=== PATIENT | female | born 1990 | race Caucasian/White ===

== ENCOUNTER 2020-06-11 12:28 | Emergency (ER) | payer OTHER, SELFPAY ==
[2020-06-11 12:38] VITALS: BP 126/92; PULSE 110; RESP 20; TEMP 39.4; O2SAT 99
[2020-06-11] MEDS: KETOROLAC 30 MG/ML VIAL (*BKC) IV PUSH (13:26)
[2020-06-11 13:29] VITALS: BP 144/74; PULSE 115; RESP 23; TEMP 38.8; O2SAT 99
[2020-06-11] MEDS: DEXAMETHASONE SOD PHOS INJ 4 MG/ML VIAL 10 MG IV PUSH (14:13)
[2020-06-11 14:17] VITALS: BP 134/71; PULSE 112; RESP 12; TEMP 37.7; O2SAT 96
--- NOTE | 2020-06-11 14:23 | ED.FEVER ---
HPI - Fever General Chief Complaint: Fever Stated Complaint: sore throat Time Seen by Provider: 06/11/20 12:42 Source: patient Mode of arrival: EMS Limitations: no limitations History of Present Illness HPI Narrative: Patient is a 29-year-old female who presents to emergency department for evaluation of sore throat fever chills body aches nonproductive cough for the last 2 days denies sick contacts denies vomiting diarrhea dyspnea chest pain has not taken anything for her symptoms presents per EMS appears uncomfortable but in no distress patient felt appropriate for Covid testing. Related Data Home Medications Medication Instructions Recorded Confirmed baclofen mg 06/11/20 ibuprofen 600 mg PO TID 06/11/20 Allergies Allergy/AdvReac Type Severity Reaction Status Date / Time bupropion AdvReac Intermediate DIZZINESS Verified 06/11/20 12:43 AND PAULA Review of Systems Review of Systems: All systems reviewed & are unremarkable except as noted in HPI and below PMFSH Past Medical History Medical History (Updated 06/11/20 @ 14:27 by Andreas Burleson PA-C) Obese Social History Social History Smoking status: Light tobacco smoker Alcohol intake: never Substance use type: marijuana Gender identity (if verbalized by the patient): Female Exam Narrative: Exam Narrative: GENERAL: Ill-appearing, well-nourished, and in no acute distress. HEAD: Normocephalic, atraumatic. EYES: PERRLA and EOMI. ENT: Nares clear, no rhinorrhea or epistaxis. Mucous membranes moist. Oropharynx with tonsillar hypertrophy exudate uvula midline no peritonsillar hypertrophy NECK: Supple. Anterior adenopathy noted CHEST: Clear to auscultation. No respiratory distress. No wheezes rales or rhonchi HEART: Regular rate and rhythm. No murmur heard. EXTREMITIES: Normal range of motion. No edema. SKIN: Warm, dry, no rash. NEURO: No focal deficits. Alert and oriented x3. PSYCH: Normal mood and affect. Course Course Emergency Course: Patient with strep pharyngitis will also be tested for Covid will be discharged home with medications was hydrated given medications in the emergency department with resolution of her fever resting comfortably no distress feeling much better with interventions felt appropriate for outpatient reevaluation agreeing to follow-up as directed. Provided with ENT referral Vital Signs Vital signs: Vital Signs Temperature 102.9 F H 06/11/20 12:38 Pulse Rate 110 H 06/11/20 12:38 Respiratory Rate 20 06/11/20 12:38 Blood Pressure 126/92 H 06/11/20 12:38 Pulse Oximetry 99 06/11/20 12:38 Temperature 99.9 F H 06/11/20 14:17 Pulse Rate 112 H 06/11/20 14:17 Respiratory Rate 12 06/11/20 14:17 Blood Pressure 134/71 06/11/20 14:17 Pulse Oximetry 96 06/11/20 14:17 MDM - Fever MDM Narrative Medical decision making narrative: Patient in the room at this time aware of case findings treatment plan diagnosis agreeing to follow-up as directed with primary care for her Covid results and reevaluation Lab Data Labs: Strep Screen Positive Group A Strep *(Reference Range: Negative)* Discharge Plan Discharge Clinical Impression: Acute streptococcal pharyngitis Patient Disposition: Home, Self-Care Condition: Stable Instructions: Antibiotic Form, Strep Throat (DC) Additional Instructions: Follow up with your primary care provider within 1-2 days to set up for reevaluation and discussion of your COVID-19 results. Go to ER for shortness of breath, difficulty breathing, chest pain, fever/chills, weakness, nauseau/vomitting, inability to swallow or open the mouth etc. or any other concerns. Stay well-hydrated Take any prescribed medications as directed. Self quarantine until you have received your COVID-19 results and been advised otherwise by primary care If you do not hav
[2020-06-11 14:53] VITALS: BP 136/68; PULSE 110; RESP 18; TEMP 37.2; O2SAT 98
[2020-06-12 11:16] LABS: SARS-CoV-2 RNA PCR Negative
== END 2020-06-11 15:13 | disposition home or self-care (01) ==
PROVIDERS: Emergency Medicine Emergency Medical Services; Emergency Provider Emergency Medicine; PCP Family Medicine
DX: J02.0 Streptococcal pharyngitis (principal); F17.200 Nicotine dependence, unspecified, uncomplicated; E66.9 Obesity, unspecified; Z68.38 Body mass index [BMI] 38.0-38.9, adult; Z20.828 Contact with and (suspected) exposure to other viral communicable diseases
CPT/HCPCS: 87635; 87880; 96374; 96375; 99284; C9803; J0131; J1100; J1885; U0003

== ENCOUNTER 2020-11-23 13:50 | Emergency (ER) | payer OTHER, SELFPAY ==
--- NOTE | ~2020-11-23 | XR_ITS ---
EXAMINATION: XR ankle LT min 3V DATE: 11/23/2020 14:04 INDICATION: Left ankle injury and pain. TECHNIQUE: 4 views of left ankle were obtained. COMPARISON: None. FINDINGS: Bone alignment is normal. No fracture. Joint spaces are well maintained. There is an enthes ophyte at posterior aspect of calcaneal tuberosity. IMPRESSION: 1. No fracture. Reviewed, dictated and finalized at location A. IMPRESSION: 1. No fracture.
--- NOTE | 2020-11-23 13:39 | ED.LOWEXIN ---
HPI - Extremity Injury (Lower) General Chief Complaint: Extremity Injury, Lower Stated Complaint: FALL/LEFT ANKLE PAIN Source: patient and EMS Mode of arrival: EMS Limitations: no limitations History of Present Illness HPI Narrative: Patient is a 30-year-old female who presents for evaluation of left ankle pain. Patient was going down a flight of steps when she missed a step, planting on her left foot with immediate pain in the left ankle. Patient did not fall or hit her head. No back trauma. No loss of consciousness. Patient is denying any hip or knee pain. No numbness or tingling in the foot. She reports pain with movement at the left ankle which is moderate to severe in nature. It is swollen and slightly bruised. She denies history of injury to this extremity in the past. No prodromal symptoms. No headache, chest pain, lightheadedness or dizziness. Related Data Home Medications Medication Instructions Recorded Confirmed baclofen mg 11/23/20 Allergies Allergy/AdvReac Type Severity Reaction Status Date / Time bupropion AdvReac Intermediate DIZZINESS Verified 11/23/20 13:54 AND PAULA Review of Systems Review of Systems: Narrative: CONSTITUTIONAL: Denies fever CARDIOVASCULAR: Denies chest pain RESPIRATORY: Denies cough or dyspnea. GASTROINTESTINAL: Denies abdominal pain SKIN: Denies rash MUSCULOSKELETAL: Denies back pain, reports left ankle pain, denies hip pain, denies knee pain NEUROLOGIC: Denies headache, denies numbness PMFSH Past Medical History Medical History (Updated 11/23/20 @ 14:18 by Stephani Sharp MD) Obese Social History Social History Smoking status: Light tobacco smoker Alcohol intake: never Substance use type: marijuana Gender identity (if verbalized by the patient): Female Exam Narrative: Exam Narrative: Nursing note and vitals reviewed. CONSTITUTIONAL: The patient appears well-developed and well-nourished. No distress. HEAD: Normocephalic and atraumatic. EYES: PERRL, EOMI, normal conjunctiva, anicteric EARS: External ears clear bilaterally, no hemotympanum MOUTH: OP clear, no erythema, exudates NECK: midline trachea, supple, FROM. No midline cervical spinal tenderness. CARDIOVASCULAR: Normal rate, regular rhythm, normal heart sounds and intact distal pulses. No murmurs, rubs, gallops. PULMONARY: Effort normal and breath sounds normal. No respiratory distress. The patient has no wheezes, rales, ronchi. No chest wall tenderness, crepitus or ecchymoses. ABDOMINAL: Soft. Nontender, nondistended. No palpable masses EXTREMITIES:: moving all extremities symmetrically. -RUE: No deformity. Normal ROM at shoulder, elbow, wrist, and hand. Sensation intact M/U/R. Pulse 2+. -LUE: No deformity. Normal ROM at shoulder, elbow, wrist, and hand., Sensation intact M/U/R. Pulse 2+ -RLE: No deformity. Normal ROM at hip, knee, ankle. Sensation intact distally. -LLE: Deformity on the lateral aspect of the left ankle. Tenderness present on the lateral malleolus. Effusion present. Normal ROM at hip, knee. Sensation intact distally. DP pulse 2+. NEUROLOGY: The patient is alert and oriented to person, place, and time. CN II-XII Course Vital Signs Vital signs: Vital Signs Temperature 36.8 C 11/23/20 13:49 Pulse Rate 89 11/23/20 13:49 Respiratory Rate 16 11/23/20 13:49 Blood Pressure 130/93 H 11/23/20 13:49 Pulse Oximetry 100 11/23/20 13:49 Temperature 36.8 C 11/23/20 13:49 Pulse Rate 89 11/23/20 13:49 Respiratory Rate 16 11/23/20 13:49 Blood Pressure 130/93 H 11/23/20 13:49 Pulse Oximetry 100 11/23/20 13:49 MDM - Extremity Injury (Lower) MDM Narrative Medical decision making narrative: Patient presented for evaluation of mechanical fall and subsequent left ankle pain. Patient neurovascularly intact with mild edema and tenderness on the lateral aspect of the left ankle. Radiographic imaging i
[2020-11-23 13:49] VITALS: BP 130/93; PULSE 89; RESP 16; TEMP 36.8; O2SAT 100
[2020-11-23] MEDS: oxyCODONE/ACETAMINOPHEN (*CRX) 5-325 MG TABLET 1 TABLET PO (14:14)
[2020-11-23 14:45] VITALS: TEMP 36.8
== END 2020-11-23 14:55 | disposition home or self-care (01) ==
PROVIDERS: Emergency Provider Emergency Medicine; PCP Nurse Practitioner Family
DX: S93.402A Sprain of unspecified ligament of left ankle, initial encounter (principal); S96.912A Strain of unspecified muscle and tendon at ankle and foot level, left foot, initial encounter; F17.200 Nicotine dependence, unspecified, uncomplicated; E66.9 Obesity, unspecified; Z68.41 Body mass index [BMI] 40.0-44.9, adult; X50.9XXA Other and unspecified overexertion or strenuous movements or postures, initial encounter
CPT/HCPCS: 73610; 99283; A9270

== ENCOUNTER 2022-04-14 18:10 | Emergency (ER) | payer OTHER, SELFPAY ==
--- NOTE | ~2022-04-14 | CT_ITS ---
EXAMINATION: CT cervical spine wo con DATE: 04/14/2022 20:29 INDICATION: POSTERIOR NECK PAIN, WORSE WIH MOVEMENT TECHNIQUE: Computed tomography (CT) of the cervical spine was performed without intravenous contrast. Automated exposure control and iterative reconstruction technique were employed. The dose-length pro duct was 414.48 mGy-cm. COMPARISON: None FINDINGS: Vertebral Body Alignment: Intact. Reversal of the normal cervical lordosis centered at C5-6. Craniocervical and atlantoaxial alignment: No significant degenerative change. Alignment intact. Osseous structures/fracture: No evidence of a lytic or blastic process in the visualized spine. No e vidence of acute fracture. Cervical soft tissues: The paraspinal soft tissues planes are maintained. Degenerative changes: No significant degenerative changes. IMPRESSION: No acute fracture or traumatic malalignment in the cervical spine. Reversed lordosis, as can occur wi th positioning and muscle spasm. Reviewed, dictated and finalized at location K. IMPRESSION: No acute fracture or traumatic malalignment in the cervical spine. Reversed molly dosis, as can occur with positioning and muscle spasm.
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
[2022-04-14 18:27] VITALS: BP 141/90; PULSE 100; RESP 20; TEMP 37.4; O2SAT 99
--- NOTE | 2022-04-14 19:10 | PC.NURSE ---
Assumed care of patient at this time. Report received from MIS Gramajo.
[2022-04-14 19:20] LABS: Glucose Point of Care 122 mg/dl (65-105)
--- NOTE | 2022-04-14 19:31 | PC.NURSE ---
Patient c/o neck pain, ERP notified, orders being placed.
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
--- NOTE | 2022-04-14 20:08 | PC.NURSE ---
Patient taken to CT at this time.
[2022-04-14] MEDS: ACETAMINOPHEN 500 MG TABLET 1000 MG PO (21:06)
== END 2022-04-14 21:21 | disposition home or self-care (01) ==
PROVIDERS: Emergency Provider Emergency Medicine; PCP Nurse Practitioner Family
DX: S09.90XA Unspecified injury of head, initial encounter (principal); S19.9XXA Unspecified injury of neck, initial encounter; S80.11XA Contusion of right lower leg, initial encounter; V43.52XA Car driver injured in collision with other type car in traffic accident, initial encounter
CPT/HCPCS: 70450; 72125; 73590; 82948; 99284; A9270

== ENCOUNTER 2022-09-22 01:26 | Emergency (ER) | payer OTHER, SELFPAY ==
[2022-09-22 01:27] VITALS: BP 142/89; PULSE 101; RESP 14; TEMP 37.2; O2SAT 100
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
[2022-09-22] MEDS: SODIUM CHLORIDE 0.9% IV 1,000 ML 999 ML IV CONT (02:08)
[2022-09-22] MEDS: PROCHLORPERAZINE EDISYLATE 10 MG/2 ML VIAL IV PUSH (02:10)
[2022-09-22] MEDS: KETOROLAC 15 MG/ML VIAL (*BKC) IV PUSH (02:10)
[2022-09-22] MEDS: diphenhydrAMINE HCl INJ 50 MG/ML VIAL 25 MG IV PUSH (02:10)
[2022-09-22 03:20] VITALS: BP 123/87; PULSE 80; RESP 19; O2SAT 97
== END 2022-09-22 03:20 | disposition home or self-care (01) ==
PROVIDERS: Emergency Provider Emergency Medicine; PCP Nurse Practitioner Family
DX: R51.9 Headache, unspecified (principal); G47.30 Sleep apnea, unspecified; E66.9 Obesity, unspecified
CPT/HCPCS: 96361; 96374; 96375; 99284; J0780; J1200; J1885; J7030

== ENCOUNTER 2025-02-18 09:10 | Emergency (ER) | payer OTHER, SELFPAY ==
[2025-02-18 09:12] VITALS: BP 135/89; PULSE 85; RESP 16; TEMP 36.1; O2SAT 99
--- OUTSIDE RECORDS SUMMARY | 2025-02-18 09:12 | XMS_ITS | Encounter Summary ---
Author Organization [facility] Address [address] [place] [id number] Care Team Providers Care Ore Dryer Name Role Phone Halima Murillo [facility] Primary Care Provider + Patty Ortez [facility] Primary Care Provider + Encounter Details Date Type Department Care Team (Late st Contact Info) Description 01/18/2021 [employer] Message Enc [facility] Family & Internal Medicine [address] [id number] [facility] CPAP Social History Tobacco Use Types Packs/Day Years Used Date Smoking Tobacco: Light Smoker Cigarettes Last attempted t o quit: 01/19/2019 Smokeless Tobacco: Never Alcohol Use Standard Drinks/Week Comments Yes 0 (1 standard drink = 0.6 oz pure alcohol) on occasion either beer or whiskey PHQ-2 Answer Date Recorded PHQ-2 Score - If the patient scores above 3, please move on to questions 3-9 0 11/10/2020 Education Answer Date Recorded What is the highest level of school you have completed or the highest degree you have received? GED or equivalent 02/2019 Comments No Sex and Gender Information Value Date Recorded Sex Assigned at Female 01/31/2021 10:00 AM CDT Legal Sex Female 3:45 PM CDT Gender Identity Female 01/31/2021 10:00 AM CDT Sexual Orientation Straight 01/31/2021 10 :00 AM CDT Occupation Industry Job Start Date Job End Date Not on file Not on file Not on file Not on file COVID-19 Exposure Response Date Recorded In the last month, have you been in contact with someone who was confirmed or suspected to have Coronavirus / COVID-19? No / Unsure 01/04/2021 12:30 PM CDT documented as of this encounter Plan of Treatment Not on file documented as of this encounter Visit Diagnoses Not on filedocumented in this encounter Additional Health Concerns Infection Onset Date Last Indicated Resolved Time COVID-19 Rule Out 02/15/2021 02/15/2021 02/15/2021 10:21 AM CDT COVID-19 Rule Out 02/15/2021 02/15/2021 02/16/2021 12:06 PM CDT Assessment Noted Time PHQ-9 Depression Total Score: 15 020 11:17 AM CDT documented as of this encounter Care Teams Ore Dryer Relationship Specialty Start Date End Date Halima Murillo [facility] PCP - General Nurse Practitioner Family 01/22/1909/19 Patty Ortez, [facility] [id number] [address], [address] [place] [id number] PCP - General Nurse Practitioner Family 10/24/2302/15 documented as of this encounter
--- OUTSIDE RECORDS SUMMARY | 2025-02-18 09:12 | XMS_ITS | Encounter Summary ---
Author Organization [facility] Address [address] [place] [id number] Care Team Providers Care Addictions Therapist Name Role Phone Patty Ortez [facility] Primary Care Provider + Encounter Details Date Type Department Care Team (Late st Contact Info) Description 11/06/2023 Inverted Edge Message [facility] Family & Internal Medicine [facility] [address] [place] [address] Melia, [facility] Provider Baclofen Social History Tobacco Use Types Packs/Day Years Used Date Smoking Tobacco: Light Smoker Cigarettes 0.3 10 Started: 009; Last attempted to quit: 01/19/2019 Smokeless Tobacco: Never Comments:restarted smoking a gain 02/05/21. PCP to licensed professional counselor Alcohol Use Standard Drinks/Week Comments Yes 0 (1 standard drink = 0.6 oz pure alcohol) socially; once or twice a month. PHQ-2 Answer Date Recorded Patient Health Questionnaire-2 Score 0 10/27/2023 Education Answer Date Recorded What is the [...] file Not on file Not on file documented as of this encounter Plan of Treatment Not on file documented as of this encounter Visit Diagnoses Not on filedocumented in this encounter Additional Health Concerns Assessment Noted Time PHQ-9 Depression Total Score: 4 03/05/20 22 4:43 PM CDT documented as of this encounter Care Teams Addictions Therapist Relationship Specialty Start Date End Date Patty Ortez, [employer]- [address] [address], [address] [place] [id number] PCP - General Nurse Practitioner Family 10/24/2302/15 documented as of this encounter
--- OUTSIDE RECORDS SUMMARY | 2025-02-18 09:12 | XMS_ITS | Clinical Summary ---
Author Organization [facility] Address [address] [place] [address] Care Team Providers Care Commercial Litigation Associate Name Role Phone Halima Murillo CAROL-PIPE INSULATOR HELPER Primary Care Provider Source Comments [facility],non-owned Affiliates and Associated Physician Practices is amultiple site organization consisting of ambulatory clinics and hospital sitesin [place], [place], [place] and [place]. This disclosure is being madepursuant to the Care Everywhere program and may not contain all information available regarding this patient. Last updated 18.[facility] Allergies Active Allergy Reactions Criticality Noted Date Comments Bupropion 02/09/2013 Medications * This document contains information received from the source organization and may not represent a complete record from that organization. * Be aware that medications may not be up to date on this document. Alwaysverify current medications with the patient. oxycodone-aceta minophen (PERCOCET) 5-325 MG tablet Take 1 Tab by mouth every 6 hours as needed for Pain. 30 Tab 0 07/10/2013 Active ibuprofen (MOTRIN) 600 MG tablet Take 1 Tab by mouth every 6 hours as needed for Pain. 30 Tab 3 07/10/2013 Active methylergonovin e (METHERGINE) 0.2 MG tablet Take 1 Tab by mouth 4 times daily. 4 Tab 0 07/10/2013 Active doxycycline (VIBRAMYCIN) 100 MG capsule Take 1 Cap by mouth 2 times daily. 14 Cap 0 07/10/2013 Active eletriptan (RELPAX) 40 MG tablet Take 1 Tab by mouth once as needed for Migraine for 1 dose. 9 Tab 0 01/31/2014 Active Active Problems Problem Noted Date Diagnosed Date Borderline personality disorder 02/10/2013 PTSD (post-traumatic stress disorder) 02/10/2013 MDD (major depressive disorder) 02/10/2013 Marijuana abuse 02/10/2013 Family History Medical History Relation Name Comments Alcohol abuse Father Heart Failure Maternal Grandfather Hypertension Maternal Grandfather Alcohol abuse Maternal Grandmother Depression Maternal Grandmother Schizophrenia Maternal Grandmother Migraine Maternal Uncle Arthritis - Osteo Mother Relation Name Status Comments Father Maternal Grandfather Maternal Grandmother Maternal Uncle Mother Social History Tobacco Use Types Packs/Day Years Used Date Smoking Tobacco: Some Days Cigarettes 0.3 8 Smokeless Tobacco: Never Tobacco Cessation:Counseling Given: Yes Comments:elcetronic cigarettes Alcohol Use Standard Drinks/Week Comments No 0 (1 standard drink = 0.6 oz pure alcohol) occasional once or twice per month Comments No Sex and Gender Information Value Date Recorded Sex Assigned at Not on file Legal Sex Female 6:33 AM GAS TRANSFER OPERATOR Gender Identity Not on file Sexual Orientation Not on file Last Filed Vital Signs Vital Sign Reading Time Taken Comments Blood Pressure 111/69 09/22/2014 9:40 AM GAS TRANSFER OPERATOR Pulse 65 09/22/2014 9:40 AM GAS TRANSFER OPERATOR Temperature 36.8 C (98.3 F) 09/22/2014 9:40 AM GAS TRANSFER OPERATOR Respiratory Rate 16 09/22/2014 9:40 AM GAS TRANSFER OPERATOR Oxygen Saturation 100% 09/22/2014 9:40 AM GAS TRANSFER OPERATOR Inhaled Oxygen Concentration - - Weight 79.4 kg (175 lb) 09/22/2014 6:24 AM GAS TRANSFER OPERATOR Height 167.6 cm (5' 6) 09/22/2014 6:24 AM GAS TRANSFER OPERATOR Body Mass Index 28.25 09/22/2014 6:24 AM GAS TRANSFER OPERATOR Plan of Treatment Health Maintenance Due Date Last Done Comments HEPATITIS C SCREENING 09/24/2010 DTAP/TDAP/TD VACCINES (1 - Tdap) 2011 HEPATITIS B VACCINE (1 of 3 - 19+ 3-dose series) 2011 COVID-19 VACCINE (1 - 2023-2 5 season) 2024 DEPRESSION SCREENING 08/18/2024 INFLUENZA VACCINE (Season Ended) 2025 ZOSTER VACCINE (1 of 2) 2042 HIV SCREENING Completed 07/10/2013 HIB VACCINE Aged Out No longer eligi ble based on patient's age to complete this topic HPV VACCINE Aged Out No longer eligi ble based on patient's age to complete this topic MENINGOCOCCAL (Group B) VACC INE SHARED DECISION-MAKING Aged Out No longer eligibl e based on patient's age to complete this topic MENINGOCOCCAL GROUPS A/C/Y/W VACCINE Aged Out No longer eligible b ased on patient's age to complete this topic PNEUMOCOCCAL VACCINE Aged Out No long er eligible based on patient's age to complete this topic Procedures Procedure Name Priority Date/Time Associated Diagnosis Comments HIV-1 HIV-2 ANTIBODY RAPID STAT 07/10/2013 2:41 PM GAS TRANSFER OPERATOR Vaginal bleeding in from Last 3 Months or Most Recently Relevant to Health Maintenance Results * HIV-1 HIV-2 ANTIBODY RAPID (07/10/2013 2:41 PM GAS TRANSFER OPERATOR) Pathologist [facility] HIV-1/HIV-2 Rapid Antibody Non Reactive Non Reactive 07/10/2013 3:23 PM GAS TRANSFER OPERATOR [facility] Blood BLOOD SPECIMEN / Unknown 07/10/2013 2:41 PM GAS TRANSFER OPERATOR 07/10/2013 2:57 PM GAS TRANSFER OPERATOR Laurie Welsh APRN-PIPE INSULATOR HELPER LAB - CHEMISTRY ORDERABLE S Final Result [facility] [address] [place] [address] from Last 3 Months or Most Recently Relevant to Health Maintenance Insurance [place] MEDICAID HOME STATE HE[employer] PLAN MEDICAID LIMITED BENEFIT - [facility] Member Subscriber Plan / Payer (Ef fective 2013-Present) Name:Jigna Kaur Relation to Subscriber:Self Name:Natasha Jigna Gabriel Payer ID:Not on file Group ID:Not on file Type:Medicaid [place] Address: [address] [address] [place] HE[place]AN Advance Directives * FULL RESUSCITATION (Latest Code Status on File) Date Activated Date Inactivated Comments 07/10/2013 1:45 PM 07/11/2013 12:11 AM * FULL RESUSCITATION Date Activated Date Inactivated Comments 02/09/2013 6:55 PM 02/15/2013 5:59 PM Care Teams Commercial Litigation Associate Relationship Specialty Start Date End Date Halima Murillo APRN-CNP [address] [place] [address] PCP - General 04/09/19
--- OUTSIDE RECORDS SUMMARY | 2025-02-18 09:13 | XMS_ITS | Encounter Summary ---
Author Organization [facility] Address [address] [address] Care Team Providers Care Receptionist Telephone Operator Name Role Phone Halima Murillo [facility] Primary Care Provider + Patty Ortez [facility] Primary Care Provider + Encounter Details Date Type Department Care Team (Late st Contact Info) Description 02/15/2021 Prep for Procedure [facility] [address] [place] [address] Jcarlos Patricia, CARL [address] [place] [phone] Social History Tobacco Use Types Packs/Day Years Used Date Smoking Tobacco: Light Smoker Cigarettes 0.3 10 Started: 009; Last attempted to quit: 01/19/2019 Smokeless Tobacco: Never Comments:restarted smoking a gain 02/05/21 Alcohol Use Standard Drinks/Week Comments Yes 0 [...] have Coronavirus / COVID-19? No / Unsure 02/15/2021 2:12 PM CDT documented as of this encounter Plan of Treatment Not on file documented as of this encounter Visit Diagnoses Diagnosis Pre-op testing- Primary Preoperative examination, unspecified documented in this encounter Additional Health Concerns Infection Onset Date Last Indicated Resolved Time COVID-19 Rule Out 02/15/2021 02/15/2021 02/15/2021 10:21 AM CDT COVID-19 Rule Out 02/15/2021 02/15/2021 02/16/2021 12:06 PM CDT Assessment Noted Time PHQ-9 Depression Total Score: 15 020 11:17 AM CDT documented as of this encounter Care Teams Receptionist Telephone Operator Relationship Specialty Start Date End Date Halima Murillo, [facility] PCP - General Nurse Practitioner Family 01/22/1909/19 Patty Ortez, [facility]- [address] [place] [address] PCP - General Nurse Practitioner Family 10/24/2302/15 documented as of this encounter
--- OUTSIDE RECORDS SUMMARY | 2025-02-18 09:13 | XMS_ITS | Clinical Summary ---
Author Organization [facility] Address [address] [place] [address] Care Team Providers Care Contact Printer Dry Film Name Role Phone PérezRoly [facility] Primary Care Provider + Allergies Active Allergy Reactions Criticality Noted Date Comments Bupropion Dizziness Low 02/09/2013 Medications ibuprofen (MOTRIN) 600 MG tabletIndications: Post-operative state Take 1 tab po TID, prn with food 90 tablet 3 3 Active baclofen (LIORESAL) 10 MG tabletIndications: Myalgia Take 1 tablet (10 mg total) by mouth 3 (three) times daily as needed. 90 tablet 1 4 Active norgestimate-ethin yl estradiol (ESTARYLLA) 0.25-35 MG-MCG tabletIndications: Encounter for oral contraception initial prescription Take 1 tablet by mouth daily. 84 tablet 3 4 Active Active Problems Problem Noted Date Diagnosed Date Obesity (BMI 30-39.9) 01/29/2022 Capsulitis of right foot 07/10/2021 Lisfranc's sprain, left, subsequent encounter Assessment & Plan (12/28/2020 1:54 PM CDT): Persistent intractable pain. Calcifications noted at the tarsometatarsal joint. Recommend MRI Sprain of anterior talofibul ar ligament, right, subsequent encounter 12/07/2020 Assessment & Plan (12/28/2020 1:52 PM CDT): Would still recommend having her use the Aircast. She presents today without it. Assessment & Plan (12/07/2020 8:07 PM CDT): Continue with Aircast. Patient would like to begin formal physical therapy. Follow-up in weeks for repeat evaluation Sprain of anterior talofibul ar ligament, left, subsequent encounter 12/07/2020 Overview (12/28/2020): 11/23/2020 Assessment & Plan (12/28/2020 1:53 PM CDT): Recommend MRI of the foot for possible Lisfranc injury maintain fracture boot. Assessment & Plan (12/07/2020 8:08 PM CDT): More ecchymosis. More tenderness. Placed in fracture boot. Weightbearing as tolerated. Follow-up in 2 weeks for repeat evaluation and x-ray. Fall due to uneven surface indoors 12/07/2020 Assessment & Plan (12/07/2020 8:09 PM CDT): 11/23/2020 as cause of injury Cigarette nicotine dependence without complicati on 06/21/2020 Neck pain 05/25/2020 Low back pain 05/25/2020 Borderline personality disorder ([facility] ) 02/10/2013 Cannabis abuse 02/10/2013 MDD (major depressive disorder) 02/10/2013 PTSD (post-traumatic stress disorder) 02/10/2013 Resolved Problems Problem Noted Date Diagnosed Date Resolved Date Surgical followup 05/11/2021 05/14/2021 Immunizations Immunization Administration Dates Next Due PFIZER COVID-19 (ANAYA CAP), MRNA, LNP-S, PF, 30 MCG/0.3 ML BROOK-SUCROSE, IM 01/28/2022 PFIZER COVID-19 (ORIGINAL FO RMULATION, PURPLE CAP) mRNA, LNP-S, PF, 30 MCG/0.3 ML DOSE 07/24/2021,07/03/2021 Td (Tenivac) preservative free 01/28/2022 Td, Adsorbed, Preservative F ree, Adult Use, Lf Unspecified 01/28/2022 Tdap (Boostrix) 04/30/2022 Family History Medical History Relation Comments Mental Health Brother bipolar/ schizop hrenia Suicide Attempts Brother No Known Problems Father Hyperlipidemia Maternal Grandfather Alzheimers Maternal Grandmother Cancer Maternal Grandmother breast Heart Disease Maternal Uncle multiple heart a ttacks Hyperlipidemia Maternal Uncle Stroke Maternal Uncle Hyperlipidemia Mother Heart Disease Paternal Grandfather Hypertension Paternal Grandfather No Known Problems Paternal Grandmother No Known Problems Son Relation Status Comments Brother Father Alive Half-sister Alive Maternal Grandfather Maternal Grandmother Maternal Uncle Alive Mother Alive Paternal Grandfather Paternal Grandmother Son Alive Social History Tobacco Use Types Packs/Day Years Used Date Smoking Tobacco: Light Smoker Cigarettes 0.3 10 Started: 009; Last attempted to quit: 01/19/2019 Smokeless Tobacco: Never Tobacco Cessation:Ready to Q uit: No; Counseling Given: Yes Comments:restarted smoking again 02/05/21. PCP to public relations counselor Alcohol Use Standard Drinks/Week Comments Yes [...] file Not on file Not on file Last Filed Vital Signs Vital Sign Reading Time Taken Comments Blood Pressure 124/71 10/27/2023 1:53 PM CDT Pulse 84 10/27/2023 1:53 PM CDT Temperature 36.4 C (97.6 F) 10/27/2023 1:53 PM CDT Respiratory Rate 16 10/27/2023 1:53 PM CDT Oxygen Saturation 97% 10/27/2023 1:53 PM CDT Inhaled Oxygen Concentration - - Weight 106.7 kg (235 lb 3.2 oz) 024 1:53 PM CDT Height 167.6 cm (5' 6) 10/27/2023 1:53 PM CDT Body Mass Index 37.96 10/27/2023 1:53 PM CDT Plan of Treatment Health Maintenance Due Date Last Done Comments Hepatitis B Vaccines (1 of 3 - 19+ 3-dose series) 2011 Pneumococcal Vaccine: Pediatrics (0 to 5 Years) and At-Risk Patients (6 to 49 Years) (1 of 2 - PCV) 2011 COVID-19 Vaccine ( - 2023-2 5 season) 2024 01/28/2022, 07/24/2021, 07/03/2021 PHQ-2 (Physician [place]) 08/18/2024 10/27/2023 Annual Physical 10/26/2024 10/27/2023, 07/26/2021 Cervical Cancer Screening Pa p Smear (Age 30 to 64) Every 3 Years 10/26/2026 10/27/2023, 08/02/2021 Cervical Cancer Screening Pa p with HPV Testing (Age 30 to 64) Every 5 Years 10/26/2028 10/27/2023 Cervical Cancer Screening wi th HPV 10/26/2028 DTaP, Tdap and Td Vaccines ( 2 - Td or Tdap) 04/30/2032 04/30/2022, 01/28/2022, 01/28/2022 Hepatitis C Completed 10/27/2023 HPV Vaccines Aged Out No longer eligi ble based on patient's age to complete this topic Meningococcal B Vaccine Aged Out No l onger eligible based on patient's age to complete this topic Meningococcal Vaccine Aged Out No sas[place] park eligible based on patient's age to complete this topic RSV Immunizations Under 20 Months Aged Out No longer eligible b ased on patient's age to complete this topic Medical Devices Implanted Type Area Respiratory Physician Device Identifier Shelf Expiration Date Model / Serial / Lot Implant System, Internal Brace Lisfranc Ligament Augmentation Implanted:Qty: 1 on 02/16/2021 by Jcarlos Patricia DPM at [facility] Left: Foot [employer] [id number] 06/17/2024 AR-1698-CP / / [id number] 2.4mm Straight Plate Implanted:Qty: 1 on 02/16/2021 by Jcarlos Patricia DPM at [facility] Left: Foot [employer] [id number]- [id number] / / 2.4mm Cortex Screw Implanted:Qty: 1 on 02/16/2021 by Jcarlos Patricia DPM at [facility] Left: Foot [employer] AR 8724-20 / / 2.4mm Locking Screw Implanted:Qty: 1 on 02/16/2021 by Jcarlos Patricia DPM at [facility] Left: Foot [employer] AR-8724V-1 4 / / 2.4mm Locking Screw Implanted:Qty: 2 on 02/16/2021 by Jcarlos Patricia DPM at [facility] Left: Foot [employer] AR-8724V-2 2 / / Explanted Type Area Respiratory Physician Device Identifier Shelf Expiration Date Model / Serial / Lot 2.4mm Cortex Screw Explanted:Qty: 1 on 02/16/2021 by Jcarlos Patricia DPM at [facility] Left: Foot [employer] AR-8724- 18 / / Procedures Procedure Name Priority Date/Time Associated Diagnosis Comments HEPATITIS C ANTIBODY Routine 10/27/2023 3:13 PM CDT Routine screening for STI (sexually transmitted infection) HUMAN PAPILLOMAVIRUS, HIGH-RISK TYPES Routine 10/27/2023 12:00 PM CDT CYTOPATH CERV/VAG THIN LAYER Routine 10/27/2023 12:00 AM CDT Cervical cancer screening from Last 3 Months or Most Recently Relevant to Health Maintenance Results * HEPATITIS C AB ([facility] ONLY) (10/27/2023 3:13 PM CDT) HEPATITIS C AB NON-REACTI VE NON-REACTI VE 10/27/2023 9:16 PM CDT [facility] 10/27/2023 3:13 PM CDT Roly Fernandez [facility] Final Re sult [facility] [address] [place] [address], * HUMAN PAPILLOMAVIRUS, HIGH-RISK TYPES (10/27/2023 12:00 PM CDT) SPECIMEN SOURCE CERVIX 10/29/2023 7:22 AM CDT [facility] HPV DNA HIGH RISK NEGATIVE NEGATIVE 10/30/2023 12:41 AM CDT [facility] Comment:SEE CYTOLOGY REPORT 10/27/2023 12:0 0 PM CDT Roly Fernandez [facility]- PATHOLOGY/CYTOLOGY ORDER CORAZON Final Result [facility] [address] [place] [address], * Cytopath Cerv/Vag Thin Layer (10/27/2023 12:00 AM CDT) THIN PREP PAP [facility] [address] [place] [address] Department of Pathology Pathology Report CERVICAL/VAGINAL PAP SMEAR REPORT Name: JIGNA KAUR Age: 2 1990 (Age: 33) Location: [facility] Sex: F Collected Date: 10/27/2023 [facility] #: [id number] Date Received: 10/29/2023 Date Reported: 11/06/2023 Provider: ROLY FERNANEDZ [facility]- INTERPRETATION CERVICAL/ENDOCERVI RUDDY: SATISFACTORY FOR EVALUATION. ENDOCERVICAL/TRANS FORMATION ZONE COMPONENT ABSENT. NEGATIVE FOR INTRAEPITHELIAL LESION OR MALIGNANCY. NEGATIVE FOR HIGH RISK HPV. The FDA approved Aptima HPV assay is an in vitro nucleic acid amplification test for the qualitative detection of E6/E7 viral messenger RNA (mRNA) from 14 high-risk types of human papillomavirus (HPV) in cervical specimens. The high-risk HPV types detected by the assay include: 16,18,31,33,35,39, 45,51,52,56,58,59, 66, and 68. Electronically Signed Out DELANO Hung (ASCP) CLINICAL HISTORY Z12.4 CERVICAL CANCER SCREENING SCREENING PAP ThinPrep Pap Test with HR HPV testing in patient > 30 years requested. Date of Last Menstrual Period: 10/05/2023 Menstrual Status: Regular SPECIMEN SUBMITTED CERVICAL/ENDOCERVI RUDDY Specimen Received:1 Thin Prep Vial, Image Assisted Pap (SMD) Please note: The Pap smear is not a diagnostic test. It is a screening test. Negative results on combined screening (Pap test and HPV-DNA) have a high negative predictive value (99.1-100 percent) for cervical cancer. The pap test is not effective in detecting cervical adenocarcinoma. [facility] CERVIX UTERI STRUCTURE / Unknown 10/27/2023 10/29/2023 6:16 AM CDT Comment:CERVICAL/ENDOCERVICA L Roly Fernandez [facility] PATHOLOGY/CYTOLOGY ORDER CORAZON Final Result [facility] [address] [place] [address], from Last 3 Months or Most Recently Relevant to Health Maintenance Insurance [employer] Advance Directives Documents on File Type Date Recorded Patient Supervisor Epoxy Fabrication Expl anation Legal Documents 04/10/2022 9:49 AM COMPLET ED BILLING REQUEST FOR ATTZOLTAN [place]ARR[place]AN FALB AND СВЕТЛАНА * Full Code (Latest Code Status on File) Date Activated Date Inactivated Comments 02/16/2021 2:45 PM 02/16/2021 7:12 PM Care Teams Contact Printer Dry Film Relationship Specialty Start Date End Date Roly Fernandez, CAPSULE MAKER- [address], [address] [place] [address] PCP - General Nurse Practitioner Family 10/24/2302/15
[2025-02-18 09:19] VITALS: TEMP 36.9
[2025-02-18 09:20] VITALS: BP 114/76; PULSE 82; RESP 17; TEMP 36.8; O2SAT 98
--- OUTSIDE RECORDS SUMMARY | 2025-02-18 09:46 | XMS_ITS | Encounter Summary ---
Author Organization [facility] Address [address] [place] [address] Care Team Providers Care Bowling Ball Finisher Name Role Phone Patty Ortez [facility] Primary Care Provider + Encounter Details Date Type Department Care Team (Late st Contact Info) Description 11/06/2023 Gema Message [facility] Family & Internal Medicine [facility] [address] [place] [address] Melia, Jack [facility] Provider Baclofen Social History Tobacco Use Types Packs/Day Years Used Date Smoking Tobacco: Light Smoker Cigarettes 0.3 10 Started: 009; Last attempted to quit: 01/19/2019 Smokeless Tobacco: Never Comments:restarted smoking a gain 02/05/21. PCP to program counselor Alcohol Use Standard Drinks/Week Comments Yes [...] documented as of this encounter Care Teams Bowling Ball Finisher Relationship Specialty Start Date End Date Patty Ortez, FLOOR COVERER- [address], [address] [place] [address] PCP - General Nurse Practitioner Family 10/24/2302/15 documented as of this encounter
--- OUTSIDE RECORDS SUMMARY | 2025-02-18 09:46 | XMS_ITS | Clinical Summary ---
Author Organization [facility] Address [address] [place] [address] Care Team Providers Care Sexual Assault Counsellor Name Role Phone PérezRoly [facility] Primary Care Provider + Allergies Active Allergy [...] Low back pain 05/25/2020 Borderline personality disorder ([facility] ) 02/10/2013 Cannabis abuse 02/10/2013 MDD (major [...] Yes Comments:restarted smoking again 02/05/21. PCP to savings counselor Alcohol Use Standard Drinks/Week Comments Yes [...] season) 2024 01/28/2022, 07/24/2021, 07/03/2021 PHQ-2 (Physician [place]) 08/18/2024 10/27/2023 Annual Physical 10/26/2024 10/27/2023, 07/26/2021 [...] this topic Medical Devices Implanted Type Area Call Worker Device Identifier Shelf Expiration Date Model / Serial / Lot Implant System, Internal Brace Lisfranc Ligament Augmentation Implanted:Qty: 1 on 02/16/2021 by Jcarlos Patricia DPM at [facility] Left: Foot [employer] [id number] 06/17/2024 AR-1698-CP / / [id number] 2.4mm Straight Plate Implanted:Qty: 1 on 02/16/2021 by Jcarlos Patricia DPM at [facility] Left: Foot [employer] [id number]- 05 / / 2.4mm Cortex Screw Implanted:Qty: 1 on 02/16/2021 by Jcarlos Patricia DPM at [facility] Left: Foot [employer] AR 8724-20 / / 2.4mm Locking Screw Implanted:Qty: 1 on 02/16/2021 by Jcarlos Patricia DPM at [facility] Left: Foot [employer] AR-8724V-1 4 / / 2.4mm Locking Screw Implanted:Qty: 2 on 02/16/2021 by Jcarlos Patricia DPM at [facility] Left: Foot [employer] AR-8724V-2 2 / / Explanted Type Area Call Worker Device Identifier Shelf Expiration Date Model / Serial / Lot 2.4mm Cortex Screw Explanted:Qty: 1 on 02/16/2021 by Jcarlos Patricia DPM at [facility] Left: Foot [employer] AR-[id number]- 18 [...] Health Maintenance Results * HEPATITIS C AB ([facility] ONLY) (10/27/2023 3:13 PM CDT) HEPATITIS C AB NON-REACTI VE NON-REACTI VE 10/27/2023 9:16 PM CDT [facility] 10/27/2023 3:[address] [facility] Final Re sult [facility] [address] [place] [address], * HUMAN PAPILLOMAVIRUS, HIGH-RISK TYPES (10/27/2023 12:00 PM CDT) SPECIMEN SOURCE CERVIX 10/29/2023 7:22 AM CDT [facility] HPV DNA HIGH RISK NEGATIVE NEGATIVE 10/30/2023 12:41 AM CDT [facility] Comment:SEE CYTOLOGY REPORT 10/27/2023 12:0 [address] [facility]- PATHOLOGY/CYTOLOGY ORDER CORAZON Final Result [facility] [address] [place] [address], * Cytopath Cerv/Vag Thin Layer (10/27/2023 12:00 AM CDT) THIN PREP PAP [facility] [address] [place] [address] Department of Pathology Pathology Report CERVICAL/VAGINAL PAP SMEAR REPORT Name: JIGNA KAUR Age: 2 1990 (Age: 33) Location: [facility] Sex: F Collected Date: 10/27/2023 [facility] #: [id number] Date Received: 10/29/2023 Date Reported: 11/06/2023 Provider: ROLY FERNANDEZ [facility]- INTERPRETATION CERVICAL/ENDOCERVI RUDDY: SATISFACTORY FOR EVALUATION. [...] is not effective in detecting cervical adenocarcinoma. [facility] CERVIX UTERI STRUCTURE / Unknown 10/27/2023 10/29/2023 6:16 AM CDT Comment:CERVICAL/ENDOCERVICA L Roly Fernandez [facility] PATHOLOGY/CYTOLOGY ORDER CORAZON Final Result [facility] [address] [place] [address], from Last 3 Months or Most Recently Relevant to Health Maintenance Insurance [employer] Advance Directives Documents on File Type Date Recorded Patient Boiling House Oiler Expl anation Legal Documents 04/10/2022 9:49 AM COMPLET ED BILLING REQUEST FOR ATTZOLTAN [employer]ARR[employer] FALB AND СВЕТЛАНА * Full Code (Latest Code Status on File) Date Activated Date Inactivated Comments 02/16/2021 2:45 PM 02/16/2021 7:12 PM Care Teams Sexual Assault Counsellor Relationship Specialty Start Date End Date Roly Fernandez, WALL WASHER- [address], [address] [place] [address] PCP - General Nurse Practitioner Family 10/24/2302/15
--- OUTSIDE RECORDS SUMMARY | 2025-02-18 09:46 | XMS_ITS | Encounter Summary ---
Author Organization [facility] Address [address] [place] [address] Care Team Providers Care Commodity Broker Name Role Phone Marie Figueroa MD Primary Care Provider [phone] Encounter Details Date Type Department Care Team (Late st Contact Info) Description 10/08/2006 Outpatient Historical [facility] Bahman Abdul MD NO ADDRESS ON FILE Er, Authorized P NO ADDRESS ON FILE Depressive Disorder, not Elsewhere Classified (Primary Dx) Social History Tobacco Use Types Packs/Day Years Used Date Smoking Tobacco: Never Assessed Comments Unknown Sex and Gender Information Value Date Recorded Sex Assigned at Not on file Legal Sex Female 5:27 AM HOSPITAL TRAY SERVICE WORKER Gender Identity Not on file Sexual Orientation Not on file documented as of this encounter Plan of Treatment Not on file documented as of this encounter Visit Diagnoses Diagnosis Depressive disorder, not elsewhere classified- Primary documented in this encounter Care Teams Commodity Broker Relationship Specialty Start Date End Date Marie Figueroa MD [address] [place] [address] PCP - General 08/04/15 documented as of this encounter
--- OUTSIDE RECORDS SUMMARY | 2025-02-18 09:46 | XMS_ITS | Encounter Summary ---
Author Organization [facility] Address [address] [place] [address] Care Team Providers Care Lining Vamper Name Role Phone Halima Murillo [facility] Primary Care Provider + Patty Ortez [facility] Primary Care Provider + Encounter Details Date Type Department Care Team (Late st Contact Info) Description 02/15/2021 Prep for Procedure [facility] [address] [place] [address] Jcarlos Patricia, CARL [address] [place] [id number] Social History Tobacco Use Types Packs/Day [...] documented as of this encounter Care Teams Lining Vamper Relationship Specialty Start Date End Date Halima Murillo, [facility] PCP - General Nurse Practitioner Family 01/22/1909/19 Patty Ortez, [facility]- [address] [place] [address] PCP - General Nurse Practitioner Family 10/24/2302/15 documented as of this encounter
--- OUTSIDE RECORDS SUMMARY | 2025-02-18 09:46 | XMS_ITS | Encounter Summary ---
Author Organization [facility] Address [address] [place] [address] Care Team Providers Care Construction Project Coordinator Name Role Phone Halima Murillo [facility] Primary Care Provider + Patty Ortez [facility] Primary Care Provider + Encounter Details Date Type Department Care Team (Late st Contact Info) Description 01/18/2021 [employer] Message Enc [facility] Family & Internal Medicine [address] [address] [facility] CPAP Social History Tobacco Use Types [...] documented as of this encounter Care Teams Construction Project Coordinator Relationship Specialty Start Date End Date Halima Murillo [facility] PCP - General Nurse Practitioner Family 01/22/1909/19 Patty Ortez, [facility] [address], [address] [place] [address] PCP - General Nurse Practitioner Family 10/24/2302/15 documented as of this encounter
--- OUTSIDE RECORDS SUMMARY | 2025-02-18 09:46 | XMS_ITS | Clinical Summary ---
Author Organization [facility] Address [address] [facility] [place] [address] Care Team Providers Care Hotel Night Auditor Name Role Phone Halima Murillo CAROL-NEUROPHYSIOLOGIST Primary Care Provider Source Comments [facility],non-owned Affiliates and Associated Physician Practices is amultiple site organization consisting of ambulatory clinics and hospital sitesin [place], [place], [place] and [place]. This disclosure is being madepursuant to the Care Everywhere program and may not contain all information available regarding this patient. Last updated 18.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 Gender Identity Not on file Sexual Orientation Not on file Last Filed Vital Signs Vital Sign Reading Time Taken Comments Blood Pressure 111/69 09/22/2014 9:40 AM HEAD WRESTLING COACH Pulse 65 09/22/2014 9:40 AM HEAD WRESTLING COACH Temperature 36.8 C (98.3 F) 09/22/2014 9:40 AM HEAD WRESTLING COACH Respiratory Rate 16 09/22/2014 9:40 AM HEAD WRESTLING COACH Oxygen Saturation 100% 09/22/2014 9:40 AM HEAD WRESTLING COACH Inhaled Oxygen Concentration - - Weight 79.4 kg (175 lb) 09/22/2014 6:24 AM HEAD WRESTLING COACH Height 167.6 cm (5' 6) 09/22/2014 6:24 AM HEAD WRESTLING COACH Body Mass Index 28.25 09/22/2014 6:24 AM HEAD WRESTLING COACH Plan of Treatment Health Maintenance Due Date [...] HIV-2 ANTIBODY RAPID STAT 07/10/2013 2:41 PM HEAD WRESTLING COACH Vaginal bleeding in from Last 3 Months or Most Recently Relevant to Health Maintenance Results * HIV-1 HIV-2 ANTIBODY RAPID (07/10/2013 2:41 PM HEAD WRESTLING COACH) Pathologist [facility] HIV-1/HIV-2 Rapid Antibody Non Reactive Non Reactive 07/10/2013 3:23 PM HEAD WRESTLING COACH [facility] Blood BLOOD SPECIMEN / Unknown 07/10/2013 2:41 PM HEAD WRESTLING COACH 07/10/2013 2:57 PM HEAD WRESTLING COACH Laurie Welsh APRN-NEUROPHYSIOLOGIST LAB - CHEMISTRY ORDERABLE S Final Result [facility] [address] [place] [address] from Last 3 Months or Most Recently Relevant to Health Maintenance Insurance [place] MEDICA[place] [employer]AN MEDICAID LIMITED BENEFIT - [facility] Member Subscriber Plan / Payer (Ef fective 2013-Present) Name:Jigna Kaur Relation to Subscriber:Self Name:Natasha Jigna Gabriel Payer ID:Not on file Group ID:Not on file Type:Medicaid [place] Address: [address] [address] [place]AN Advance Directives * FULL RESUSCITATION (Latest Code Status on File) Date Activated Date Inactivated Comments 07/10/2013 1:45 PM 07/11/2013 12:11 AM * FULL RESUSCITATION Date Activated Date Inactivated Comments 02/09/2013 6:55 PM 02/15/2013 5:59 PM Care Teams Hotel Night Auditor Relationship Specialty Start Date End Date Halima Murillo APRN-CNP [address] [place] [address] PCP - General 04/09/19
--- OUTSIDE RECORDS SUMMARY | 2025-02-18 09:46 | XMS_ITS | Clinical Summary ---
Author Organization [facility] Address [address] 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
[2025-02-18 10:20] LABS: Hematocrit 38.9 % (37.0-47.0); Hemoglobin 12.8 g/dL (12.0-15.0)
--- NOTE | 2025-02-18 10:51 | ED_ITS ---
HPI - Epistaxis General Chief complaint: Epistaxis Stated complaint: NOSEBLEED,ELEVATED BP Time Seen by Provider: 02/18/25 09:17 Source: patient Mode of arrival: ambulatory Limitations: no limitations History of Present Illness HPI Narrative: Patient is a 34-year-old female who presents the ED with report of an epistaxis. Patient reports she had a nosebleed this morning from her left nare. States this lasted for approximately 30 minutes and resolved on its own. She states this is abnormal for her. She does not typically have nose bleeds. She reports she began feeling weak and lightheaded. She took her blood pressure at work and states it was elevated to 130s over 90s. She states this is very elevated for her. Patient is not on any anticoagulation. Denies shortness of breath. Related Data Home Medications ?Medication ?Instructions ?Recorded ?Confirmed ?Last Taken ?Type baclofen 10 mg tablet mg 11/23/20 Unknown History Allergies Allergy/AdvReac Type Severity Reaction Status Date / Time bupropion AdvReac Intermediate DIZZINESS Verified 02/18/25 09:23 AND PAULA Review of Systems 2 Review of Systems: All systems reviewed & are unremarkable except as noted in HPI. All systems reviewed & are unremarkable except as noted in HPI and below PMFSH Past Medical History Medical History Obese Social History Social History Smoking status: Light tobacco smoker Alcohol intake: never Substance use type: marijuana Gender identity (if verbalized by the patient): Female Exam 2 Narrative: GENERAL: Well appearing, obese with BMI of 37.2, non-toxic, in no acute distress. HEAD: Normocephalic, atraumatic. ENT: No active epistaxis. No dried blood in nares. Small polyp identified in left nostril. No septal hematoma. No blood draining down posterior pharynx. RESPIRATORY: Airway patent, respirations nonlabored. Clear to auscultation bilaterally, no rales, rhonchi, wheezing. CARDIOVASCULAR: Regular rate and rhythm without murmurs, rubs, or gallops. MUSCULOSKELETAL: Moves all extremities. No gross deformities. SKIN: Warm, dry, normal color. NEURO: A&O X3. Speech clear. Cranial nerves II-XII grossly intact. Steady gait. No ataxic movements. No focal deficits. PSYCHIATRIC: Appropriate mood and affect. Normal interaction. Course Vital Signs Vital signs: Vital Signs Temperature 97 F L 02/18/25 09:12 Pulse Rate 85 02/18/25 09:12 Respiratory Rate 16 02/18/25 09:12 Blood Pressure 135/89 02/18/25 09:12 Pulse Oximetry 99 02/18/25 09:12 Oxygen Delivery Room Air 02/18/25 09:12 Temperature 98.2 F 02/18/25 09:20 Pulse Rate 78 02/18/25 11:22 Respiratory Rate 20 02/18/25 11:22 Blood Pressure 106/56 L 02/18/25 11:22 Pulse Oximetry 100 02/18/25 11:22 Oxygen Delivery Room Air 02/18/25 09:20 MDM - Epistaxis MDM Narrative Medical decision making narrative: Epistaxis resolved. Likely anterior. No septal hematoma or concerning findings on exam. Discussed nasal polyp in left nostril. Blood pressure upon arrival 135/89. Improved down to 106/56 without intervention. Advised even if 130s over 90s is elevated for her, it is not in elevated enough level that would cause concern. Patient concerned that she is feeling weak. H&H was ordered. Hemoglobin is stable at 12.8. Patient also requesting be tested for COVID-19. This was negative. Patient safe for discharge home. Given nasal plan. Given referral to ENT. Given return precautions. Discharged in stable condition. Medical Records Attestation: I reviewed the patient's medical records. Lab Data Attestation: I reviewed the patient's lab results. 02/18/25 10:15 Labs: Lab Results 02/18/25 02/18/25 Range/Units 10:14 10:15 Hgb 12.8 (12.0-15.0) g/dL Hct 38.9 (37.0-47.0) % SARS-CoV-2 RNA (RT-PCR) Negative (Negative) Discharge Plan Discharge Clinical Impression: Epistaxis, Nasal polyp Patient Disposition: Home Condition: Stable Instructions: Antibiotic Form, Nosebleed (ED) Additional Instructions: Follow up with ENT for further evaluation. Avoid rubbing or blowing your nose for the next few days. Recommend humidifier or placing Vaseline inside nostrils at night to avoid drying out. You may also use nasal spray/saline spray to nose to keep moist. If bleeding recurs, utilize [id number] Afrin to nostrils and place nasal clamp for approximately 30 minutes. Do not adjust or move the clamp for at least 30 minutes. If bleeding does still persistent after 30 minutes, replace clamp for an additional 15 minutes. If bleeding is still persistent after 1 hour, return to the ED for further evaluation. Additionally, return if you experience severe pain, passing out, significant dizziness, or any other symptoms of concern. Patient Language: Hungarian Prescriptions: No Action baclofen 10 mg tablet acetaminophen 500 mg capsule 500 mg PO Q6H PRN (Reason: fever or pain) Qty: 30 0RF ibuprofen 400 mg tablet 400 mg PO TID PRN (Reason: fever or pain) 10 Days Qty: 30 0RF Follow-up/Referrals: Carson Hendricks MD [Physician] - (ENT) PHYSICIAN,[facility] [Primary Care Provider] - Time of Disposition: 10:53
[2025-02-18 10:59] LABS: SARS-CoV-2 RNA PCR Negative (Negative)
[2025-02-18 11:22] VITALS: BP 106/56; PULSE 78; RESP 20; O2SAT 100
== END 2025-02-18 11:24 | disposition home or self-care (01) ==
PROVIDERS: Emergency Provider Physician Assistant
DX: R04.0 Epistaxis (principal); J33.9 Nasal polyp, unspecified; Z11.59 Encounter for screening for other viral diseases
CPT/HCPCS: 36415; 85014; 85018; 87635; 99283